=== PATIENT | female | born 1960 | race Caucasian/White ===

== ENCOUNTER → 2020-05-06 | Outpatient (CLI) | payer BC ==
[~2020-05-06] MED LIST: ALEVE220 M1; APAP500 PO
== END ==
LOC: RAD 15:42
PROVIDERS: ATTEND Nurse Practitioner
DX: M47.815 Spondylosis without myelopathy or radiculopathy, thoracolumbar region (principal)

== ENCOUNTER → 2020-05-24 | Outpatient (CLI) | payer BC | LOC: SJCVCIMAG 08:19 | PROVIDERS: ATTEND Internal Medicine | DX: I08.1 Rheumatic disorders of both mitral and tricuspid valves (principal); R01.1 Cardiac murmur, unspecified; E78.5 Hyperlipidemia, unspecified; I10 Essential (primary) hypertension ==

== ENCOUNTER → 2021-04-03 | Outpatient (CLI) | payer BC | LOC: RAD 15:03 | PROVIDERS: ATTEND Nurse Practitioner | DX: M16.0 Bilateral primary osteoarthritis of hip (principal); M41.86 Other forms of scoliosis, lumbar region; M25.551 Pain in right hip; M25.552 Pain in left hip ==

== ENCOUNTER → 2021-04-28 | Outpatient (CLI) | payer BC | LOC: SJCVCIMAG 13:04 | PROVIDERS: ATTEND Internal Medicine | DX: M79.604 Pain in right leg (principal); M79.605 Pain in left leg; I73.9 Peripheral vascular disease, unspecified; I10 Essential (primary) hypertension; M19.90 Unspecified osteoarthritis, unspecified site; E66.9 Obesity, unspecified; F32.A Depression, unspecified; Z98.890 Other specified postprocedural states; Z79.899 Other long term (current) drug therapy; Z87.891 Personal history of nicotine dependence ==